=== PATIENT | female | born 1995 | race Caucasian/White ===

== ENCOUNTER 2017-02-07 09:29 | Emergency (ER) | payer SELFPAY ==
[~2017-02-07] VITALS: Ht 160 cm; Wt 54.4 kg
--- NOTE | 2017-02-07 09:48 | NUR ---
mse completed, pt d/c'd home, aci/rx x1 given. pt ambulated w/o diff/took all belongings.
[2017-02-07 09:51] VITALS: BP 115/78
== END 2017-02-07 09:52 | disposition home or self-care (01) ==
LOC: ER 09:29
DX: H66.91 Otitis media, unspecified, right ear (principal)
CPT/HCPCS: 99283; A4663